=== PATIENT | male | born 1955 | race Caucasian/White ===

== ENCOUNTER 2018-07-20 14:07 | Emergency (ER) | payer OTHER ==
[2018-07-20 14:17] VITALS: RESP 20; TEMP 96.9
[2018-07-20] MEDS ORDERED: TDAP VACCINE 0.5 ML SUS IM ONE ×2 (14:18→14:36)
[2018-07-20] MEDS ORDERED: LIDOCAINE HCL 1% MPF 30 SOL ONE (14:44)
[2018-07-20] MEDS ORDERED: LIDOCAINE BUFFERED 1% 50 ML SOL SC ONE (14:45)
[2018-07-20 15:14] VITALS: BP 141/54; PULSE 52; O2SAT 100
[2018-07-20] MEDS ORDERED: BACITRACIN 500 U/GM OIN TOP ONE ×2 (15:20→15:27)
== END 2018-07-20 15:50 | disposition home or self-care (01) | DRG 605 ==
LOC: ED 14:07
DX: S61.210A Laceration without foreign body of right index finger without damage to nail, initial encounter (principal); S61.212A Laceration without foreign body of right middle finger without damage to nail, initial encounter; W26.8XXA Contact with other sharp object(s), not elsewhere classified, initial encounter
CPT/HCPCS: 12001; 73130; 90715; 99285; G0168; A9270-GY; J2001

== ENCOUNTER 2018-11-04 23:59 | Emergency (ER) | payer OTHER | END 2018-11-05 01:35 | disposition home or self-care (01) | LOC: ED 23:59 ==